=== PATIENT | female | born 1995 | race Two or more races ===

== ENCOUNTER 2022-01-13 09:33 | Outpatient (CLI) | payer OTHER | END 2022-01-13 13:30 | disposition home or self-care (01) | LOC: LAB 09:33 | PROVIDERS: ATTEND Orthopaedic Surgery | DX: D64.9 Anemia, unspecified (principal); E08.9 Diabetes mellitus due to underlying condition without complications; I10 Essential (primary) hypertension; N39.0 Urinary tract infection, site not specified; D68.8 Other specified coagulation defects; B95.62 Methicillin resistant Staphylococcus aureus infection as the cause of diseases classified elsewhere; E88.9 Metabolic disorder, unspecified ==

== ENCOUNTER → 2022-01-22 08:00 | Outpatient (CLI) | payer OTHER ==
[~2022-01-22] VITALS: Ht 160 cm; Wt 81.6 kg
[~2022-01-22 08:00] MED LIST: AMBIEN10 MG PO; BUSPIRONE HCL10 MG PO; D3 + K2 DOTS 11 EACH PO; FOLIC ACID0.8 M1 PO; LORAZEPAM1 MG PO; LYRICA150 MG PO; PROAIR HFA8.5 GM IH; SEROQUEL XR150 MG PO; SYNTHROID50 MCG PO; TREXALL15 MG PO; TRI-SPRINTEC T1 EACH PO; ZOLOFT100 MG PO
== END | disposition home or self-care (01) ==
LOC: LAB 08:00 → ADM 09:45 → CIR.AMB 01-27 07:00 → EDSTATUS 01-27 09:45
PROVIDERS: ATTEND Orthopaedic Surgery
DX: Z20.828 Contact with and (suspected) exposure to other viral communicable diseases (principal); Z01.812 Encounter for preprocedural laboratory examination

== ENCOUNTER → 2022-02-17 | Outpatient (CLI) | payer OTHER | END | disposition home or self-care (01) | LOC: LAB 09:04 | PROVIDERS: ATTEND Orthopaedic Surgery | DX: D64.9 Anemia, unspecified (principal); E88.9 Metabolic disorder, unspecified; D68.8 Other specified coagulation defects; N39.0 Urinary tract infection, site not specified; A49.02 Methicillin resistant Staphylococcus aureus infection, unspecified site; E11.9 Type 2 diabetes mellitus without complications; Z76.89 Persons encountering health services in other specified circumstances; I49.9 Cardiac arrhythmia, unspecified; I10 Essential (primary) hypertension ==

== ENCOUNTER 2022-03-10 05:11 | Day surgery (SDC) | payer OTHER | END 2022-03-10 19:30 | disposition home or self-care (01) | LOC: CIR.AMB 05:11 | PROVIDERS: ATTEND Orthopaedic Surgery | DX: M23.672 Other spontaneous disruption of capsular ligament of left knee (principal); Z20.822 Contact with and (suspected) exposure to COVID-19; Z88.2 Allergy status to sulfonamides; J45.909 Unspecified asthma, uncomplicated; Z86.16 Personal history of COVID-19; E03.9 Hypothyroidism, unspecified | CPT/HCPCS: 27427; L8699 ==

== ENCOUNTER 2022-03-31 07:47 | Outpatient (CLI) | payer OTHER | END 2022-03-31 07:55 | disposition home or self-care (01) | LOC: RAD 07:47 | PROVIDERS: ATTEND Orthopaedic Surgery | DX: M66.861 Spontaneous rupture of other tendons, right lower leg (principal); M22.2X1 Patellofemoral disorders, right knee ==

== ENCOUNTER 2022-04-01 07:30 | Outpatient (CLI) | payer OTHER | END 2022-04-01 07:38 | disposition home or self-care (01) | LOC: LAB 07:30 | DX: D64.9 Anemia, unspecified (principal); M06.4 Inflammatory polyarthropathy ==

== ENCOUNTER 2022-04-21 10:19 | Outpatient (CLI) | payer OTHER | END 2022-04-21 10:38 | disposition home or self-care (01) | LOC: LAB 10:19 | PROVIDERS: ATTEND Orthopaedic Surgery | DX: M22.2X1 Patellofemoral disorders, right knee (principal); M06.4 Inflammatory polyarthropathy ==

== ENCOUNTER → 2022-05-07 10:01 | Outpatient (CLI) | payer OTHER | END | disposition home or self-care (01) | LOC: LAB 10:01 | PROVIDERS: ATTEND Orthopaedic Surgery | DX: M06.4 Inflammatory polyarthropathy (principal); M66.861 Spontaneous rupture of other tendons, right lower leg; M22.2X1 Patellofemoral disorders, right knee ==

== ENCOUNTER 2022-05-07 10:46 | Outpatient (CLI) | payer OTHER | END 2022-05-07 10:47 | disposition home or self-care (01) | LOC: NUCLEAR 10:46 | PROVIDERS: ATTEND Orthopaedic Surgery | DX: M81.0 Age-related osteoporosis without current pathological fracture (principal); Z88.2 Allergy status to sulfonamides ==

== ENCOUNTER 2022-05-08 09:34 | Outpatient (CLI) | payer OTHER | END 2022-05-08 09:36 | disposition home or self-care (01) | LOC: LAB 09:34 | PROVIDERS: ATTEND Orthopaedic Surgery | DX: D68.8 Other specified coagulation defects (principal); N39.0 Urinary tract infection, site not specified; I10 Essential (primary) hypertension; M06.4 Inflammatory polyarthropathy ==

== ENCOUNTER 2022-05-26 06:18 | Day surgery (SDC) | payer OTHER | END 2022-05-26 16:45 | disposition home or self-care (01) | LOC: CIR.AMB 06:18 | PROVIDERS: ATTEND Orthopaedic Surgery | DX: S82.191A Other fracture of upper end of right tibia, initial encounter for closed fracture (principal); Z20.822 Contact with and (suspected) exposure to COVID-19; M22.00 Recurrent dislocation of patella, unspecified knee; J45.909 Unspecified asthma, uncomplicated; Z86.16 Personal history of COVID-19; M79.7 Fibromyalgia ==

== ENCOUNTER 2022-06-25 10:43 | Outpatient (CLI) | payer OTHER | END 2022-06-25 10:56 | disposition home or self-care (01) | LOC: RAD 10:43 | PROVIDERS: ATTEND Orthopaedic Surgery | DX: M22.01 Recurrent dislocation of patella, right knee (principal); S82.191G Other fracture of upper end of right tibia, subsequent encounter for closed fracture with delayed healing ==

== ENCOUNTER 2022-06-26 09:28 | Outpatient (CLI) | payer OTHER | END 2022-06-26 10:15 | disposition home or self-care (01) | LOC: LAB 09:28 | PROVIDERS: ATTEND Orthopaedic Surgery | DX: E55.9 Vitamin D deficiency, unspecified (principal); M85.9 Disorder of bone density and structure, unspecified; E56.1 Deficiency of vitamin K; M81.8 Other osteoporosis without current pathological fracture; E88.9 Metabolic disorder, unspecified; E21.3 Hyperparathyroidism, unspecified ==

== ENCOUNTER 2022-07-31 13:32 | Outpatient (CLI) | payer OTHER | END 2022-07-31 13:42 | disposition home or self-care (01) | LOC: RAD 13:32 | PROVIDERS: ATTEND Orthopaedic Surgery | DX: M22.01 Recurrent dislocation of patella, right knee (principal); S82.191G Other fracture of upper end of right tibia, subsequent encounter for closed fracture with delayed healing ==

== ENCOUNTER 2022-10-01 09:59 | Outpatient (CLI) | payer OTHER | END 2022-10-01 10:12 | disposition home or self-care (01) | LOC: RAD 09:59 | PROVIDERS: ATTEND Orthopaedic Surgery | DX: S82.191G Other fracture of upper end of right tibia, subsequent encounter for closed fracture with delayed healing (principal) ==

== ENCOUNTER 2023-01-29 13:49 | Outpatient (CLI) | payer OTHER | END 2023-01-29 13:56 | disposition home or self-care (01) | LOC: RAD 13:49 | PROVIDERS: ATTEND Orthopaedic Surgery | DX: S82.191G Other fracture of upper end of right tibia, subsequent encounter for closed fracture with delayed healing (principal) ==